=== PATIENT | male | born 1940 | race Caucasian/White ===

== ENCOUNTER → 2019-04-26 11:01 | Outpatient (BNVA) | payer MEDICARE, SELFPAY | PROVIDERS: Family Provider Family Medicine; PCP Family Medicine; Referring Provider Family Medicine; Visit Provider Specialist | DX: M17.12 Unilateral primary osteoarthritis, left knee (principal); M25.462 Effusion, left knee; M25.461 Effusion, right knee | CPT/HCPCS: 73560; 73565 ==

== ENCOUNTER 2019-05-12 10:41 | Outpatient (CLI) | payer MEDICARE, SELFPAY ==
--- NOTE | 2019-05-12 11:00 | MR_ITS ---
WS: [id number] MRI LEFT KNEE HISTORY: pain COMPARISON: 03/20/2010 Anterior cruciate ligament: Abnormal ACL. There are a few fibers of the ACL identified distally. Mid ACL contains increased signal and becomes more horizontal in position. Suspicious for partial tear. J oint space narrowing is also causing impingement upon the ACL. Similar findings were noted on the kenneth or examination. Posterior cruciate ligament: Intact. Medial collateral ligament: Intact. Posterior lateral corner structures: Intact. Medial menisci: Small caliber menisci are extruded from the joint space due to joint space narrowing. Small caliber posterior horn. Suspect partial meniscectomy. Lateral meniscus: Intrasubstance degeneration. No full-thickness tear. Extensor mechanism: Distal quadriceps tendon is normal. Multifocal areas of increased signal in the p atellar tendon. Fluid and soft tissue: Small suprapatellar joint effusion. There is a small amount of soft tissue kristina ma posterior to the femoral condyles. Small Escobar's cyst. Osseous and articular structures: Patellofemoral compartment: Mild narrowing of the patellofemoral joint space. Medial compartment: Severe narrowing of the medial compartment causing extrusion of the menisci. Comp lete loss of cartilage with irregularity along the cortical surface of the joint space. Osteophytes e xtend from the medial femoral condyle and tibial plateau. Small amount of marrow edema along the tibi al plateau surface. This additional marrow edema involving the posterior medial femoral condyle with adjacent soft tissue edema. Lateral compartment: Moderate narrowing of the lateral compartment with loss of cartilage. No marrow edema or fracture. Moderate size osteophytes extend from the lateral femoral condyle and tibial plate au. MR/MR knee LT wo con* [id number] IMPRESSION: 1. 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 2. Small amount of marrow edema with adjacent soft tissue edema involving the posterior medial femoral condyle. Could be related to an acute injury. 3. Small joint effusion and popliteal cyst. 4. Abnormal appearance of the ACL. Partial tear suspected. 5. Small caliber and an abnormal medial menisci. Similar to the prior study m ay be secondary to partial meniscectomy.
== END 2019-05-12 10:42 | disposition home or self-care (01) ==
LOC: RADSHAW 10:42
PROVIDERS: Family Provider Family Medicine; PCP Family Medicine; Visit Provider Specialist
DX: M17.12 Unilateral primary osteoarthritis, left knee (principal); M25.562 Pain in left knee; M25.462 Effusion, left knee; M71.22 Synovial cyst of popliteal space [Baker], left knee
CPT/HCPCS: 73721

== ENCOUNTER → 2019-05-25 13:12 | Outpatient (BNVA) | payer MEDICARE, SELFPAY | PROVIDERS: Family Provider Family Medicine; PCP Family Medicine; Referring Provider Specialist; Visit Provider Psychiatry & Neurology Neurology | DX: G62.89 Other specified polyneuropathies (principal); M25.562 Pain in left knee | CPT/HCPCS: 95885; 95908 ==

== ENCOUNTER → 2019-09-08 08:45 | Outpatient (BNVA) | payer MEDICARE, SELFPAY | PROVIDERS: Family Provider Family Medicine; PCP Family Medicine; Visit Provider Internal Medicine | DX: M60.89 Other myositis, multiple sites (principal); L40.9 Psoriasis, unspecified; M10.9 Gout, unspecified | CPT/HCPCS: 36415; 83516; 99204 ==

== ENCOUNTER 2019-09-08 10:39 | Outpatient (CLI) | payer MEDICARE, SELFPAY ==
--- NOTE | 2019-09-08 10:47 | XRR_ITS ---
PROCEDURE INFORMATION: Exam: XR Bilateral Hips with Pelvis when Performed Exam date and time: 09/08/2019 10:49 AM Age: 78 years old Clinical indication: Bilateral; Patient HX: Bilat hip pain x years; Si pain. HX of skin cancer; Additional info: Si pain, hip pain TECHNIQUE: Imaging protocol: XR bilateral hips with pelvis when performed. Views: 2 views. COMPARISON: No relevant prior studies available. FINDINGS: Bones/joints: Moderate degenerative changes within the right and left hip including joint space narrowing and osteophytosis. No visualized fracture. Trabecular stress markings within the proximal femur are normal and acetabulum appears intact. Visualized portions of the pelvis without fracture Soft tissues: Unremarkable. XR/XR hip BI 3-4V wo/w pel [id number] IMPRESSION: Moderate degenerative changes within the right and left hip including joint space narrowing and osteophytosis. No erosive changes. No osteopenia
--- NOTE | 2019-09-08 10:47 | XRR_ITS ---
PROCEDURE INFORMATION: Exam: XR Right Hand Exam date and time: 09/08/2019 10:49 AM Age: 78 years old Clinical indication: Right; Patient HX: C/O hand pain and swelling x years; Psoriasis, unspecified. HX of skin cancer; Additional info: Hand XR TECHNIQUE: Imaging protocol: XR Right hand. Views: 1 or 2 views. COMPARISON: No relevant prior studies available. FINDINGS: Bones/joints: osseous structures of the hand are without an acute process. Distal radioulnar joint and radiocarpal joints grossly normal. Carpus without fracture. Metacarpals and phalangeal without fracture or dislocation. No erosive changes or periarticular calcifications. mild degenerative changes at the first carpometacarpal joint. Soft tissues: See Bones/joints finding. XR/XR hand RT 2V [id number] IMPRESSION: Mild degenerative changes at the first carpometacarpal joint. No erosive changes.
--- NOTE | 2019-09-08 10:47 | XRR_ITS ---
PROCEDURE INFORMATION: Exam: XR Left Hand Exam date and time: 09/08/2019 10:49 AM Age: 78 years old Clinical indication: Left; Patient HX: C/O bilat hand pain and swelling x years; . Psoriasis, unspecified. HX of skin cancer; Additional info: Hand swelling, psa TECHNIQUE: Imaging protocol: XR Left hand. Views: 1 or 2 views. COMPARISON: MRI Hand w/o LEFT* [id number] 10/18/2015 6:52 AM FINDINGS: Bones/joints: osseous structures of the hand are without an acute process. Distal radioulnar joint and radiocarpal joints grossly normal. Carpus without fracture. Metacarpals and phalangeal without fracture or dislocation. No erosive changes or periarticular calcifications. Mild degenerative changes first carpometacarpal joint. Mild degenerative changes distal interphalangeal joint of the 4th ray Soft tissues: See Bones/joints finding. XR/XR hand LT 2V [id number] IMPRESSION: Mild degenerative changes first carpometacarpal joint. No erosive changes.
== END 2019-09-08 10:40 | disposition home or self-care (01) ==
LOC: RADWPI 10:43
PROVIDERS: Family Provider Family Medicine; PCP Family Medicine; Visit Provider Internal Medicine
DX: M25.551 Pain in right hip (principal); M25.552 Pain in left hip; L40.9 Psoriasis, unspecified; M79.89 Other specified soft tissue disorders
CPT/HCPCS: 73120; 73522; 80053; 81003; 82550; 84100; 84443; 84550; 85025; 85651; 86038; 86140; 86431; 86812; G0103

== ENCOUNTER 2020-03-28 14:24 | Outpatient (RCR) | payer MEDICARE, SELFPAY | END 2020-04-16 23:59 | disposition home or self-care (01) | LOC: SPT 14:24 | PROVIDERS: PCP Family Medicine; Referring Provider Student in an Organized Health Care Education/Training Program; Visit Provider Student in an Organized Health Care Education/Training Program | DX: Z96.652 Presence of left artificial knee joint (principal); Z47.1 Aftercare following joint replacement surgery | CPT/HCPCS: 97110; 97161 ==

== ENCOUNTER 2020-04-17 06:00 | Outpatient (RCR) | payer MEDICARE, SELFPAY | END 2020-05-17 23:59 | disposition home or self-care (01) | LOC: SPT 06:00 | PROVIDERS: PCP Family Medicine; Referring Provider Student in an Organized Health Care Education/Training Program; Visit Provider Student in an Organized Health Care Education/Training Program | DX: Z47.1 Aftercare following joint replacement surgery (principal); Z96.652 Presence of left artificial knee joint | CPT/HCPCS: 97110 ==

== ENCOUNTER → 2020-06-15 10:08 | Outpatient (BNVA) | payer MEDICARE, SELFPAY | PROVIDERS: PCP Family Medicine; Visit Provider Surgery | DX: R13.10 Dysphagia, unspecified (principal); Z20.822 Contact with and (suspected) exposure to COVID-19 | CPT/HCPCS: 87635 ==

== ENCOUNTER 2020-06-20 07:14 | Day surgery (SDC) | payer MEDICARE, SELFPAY ==
[2020-06-19 08:21] VITALS: BMI 21.7
--- NOTE | 2020-06-20 07:45 | ANES.PREANE2 ---
Pre-Anesthetic Assessment Pre-Anesthetic Assessment: Height/Weight: Height 1.83 m Weight 72.575 kg Preop Diagnosis: upper gi symptoms Proposed Procedure: Operation Date: 06/20/20 08:30 Proposed Procedures p EGD Dilation W/ Balloon 70264 R13.10(Not Applicable) - Chan Eason MD Was Beta Jem taken within 24 hours: N/A Was Clonidine taken within 24 hours: N/A Social: Social History: No alcohol and No tobacco Exam: Pre-Anes Outpt Exam: alert, oriented x 3, clear to auscultation bilaterally and regular rate & rhythm Airway: Submandibular: WNL Cervical ROM: WNL MP: 2 Dentition: False CV/HEM: CV/HEM: Anemia GI: Comments: hernia, esophageal scarring Musc/skel: Musc/skel: OA/DJD and Weakness (uses walker) Comments: Gout Anesthetic Plan: ASA status: 3 Anesthesia: MAC Risk of > 500 ml blood loss (7ml/kg in children): No PFSH Anesthesia PFSH: Medical History Gout Peptic ulcer disease Psoriasis Umbilical hernia Surgical History History of esophagogastroduodenoscopy (EGD) Hx of arthroscopy of left knee Social History Smoking and tobacco status: never smoked Alcohol intake: never History of recent travel: No Data Anesthesia Cardiac Studies: No Data to Display
[2020-06-20 07:50] VITALS: BP 189/112; PULSE 72; RESP 16; TEMP 36.9; O2SAT 95
[2020-06-20] MEDS: sodium chloride 0.9% 1,000 ML 30 ML IV (08:04)
[2020-06-20 08:06] VITALS: BP 174/94
--- NOTE | 2020-06-20 08:24 | W.PM.OPSUD ---
Surgery/Procedure H&P Update DATE OF PROCEDURE: June 20, 2020 DATE H&P PERFORMED: 06/02/20 H&P UPDATE INFORMATION: I have reviewed H&P completed within last 30 days, I have examined patient prior to procedure and No changes to prior documentation PREOP DIAGNOSIS: upper gi symptoms PLANNED PROCEDURE: Operation Date: 06/20/20 08:30 Proposed Procedures p EGD Dilation W/ Balloon 08777 R13.10(Not Applicable) - Chan Eason MD
[2020-06-20 08:42] VITALS: BP 140/81; PULSE 62; RESP 18; TEMP 36.5; O2SAT 97
[2020-06-20 08:57] VITALS: BP 134/75; PULSE 66; RESP 18; TEMP 36.7; O2SAT 97
--- NOTE | 2020-06-20 12:28 | ANE.PACU2 ---
Inpatient post-anesthesia follow up: Airway intact: Yes Vital signs: Temperature 98.0 F Pulse Rate 66 Respiratory Rate 18 Blood Pressure 134/75 Pulse Oximetry 97 Oxygen Delivery Me thod Room Air Oxygen Flow Rate 3 Fraction of Inspir ed Oxygen Hydration adequate: Yes Nausea and vomiting: No Pain level: 1 Mental status: Baseline
== END 2020-06-20 09:20 | disposition home or self-care (01) ==
PROVIDERS: PCP Family Medicine; Visit Provider Surgery
DX: R13.10 Dysphagia, unspecified (principal); K25.9 Gastric ulcer, unspecified as acute or chronic, without hemorrhage or perforation; Z87.11 Personal history of peptic ulcer disease
CPT/HCPCS: 43239; 88305; 96360; J2704; J7030

== ENCOUNTER 2020-09-15 10:37 | Outpatient (CLI) | payer MEDICARE, SELFPAY ==
--- NOTE | 2020-09-15 10:48 | XR_ITS ---
WS: [id number] Exam: XR knee LT 3V* [id number] Date/Time of Exam: 09/15/2020 10:49 AM Reason For Exam: KNEE JOINT PAIN, LEFT A total knee prosthesis is in place in satisfactory position. No evidence of fracture or loosening. N o joint effusion. XR/XR knee LT 3V* [id number] IMPRESSION: 1. Total knee replacement in satisfactory position. No complications.
--- NOTE | 2020-09-15 10:48 | XR_ITS ---
WS: [id number] Exam: XR ankle LT min 3V* [id number] Date/Time of Exam: 09/15/2020 10:49 AM Reason For Exam: ANKLE PAIN, LEFT No acute fracture or dislocation. The ankle mortise is intact. Soft tissues are unremarkable. XR/XR ankle LT min 3V* [id number] IMPRESSION: 1. No fracture or dislocation. Minimal degenerative change.
== END 2020-09-15 10:38 | disposition home or self-care (01) ==
PROVIDERS: PCP Family Medicine; Visit Provider Clinical Nurse Specialist Adult Health
DX: M25.562 Pain in left knee (principal); M25.572 Pain in left ankle and joints of left foot; Z96.652 Presence of left artificial knee joint
CPT/HCPCS: 73562; 73610

== ENCOUNTER 2021-02-05 07:50 | Outpatient (CLI) | payer MEDICARE, SELFPAY ==
--- NOTE | 2021-02-05 | CT_ITS ---
WS: [id number] Exam: CT neck w con* [id number] Date/Time of Exam: 02/05/2021 7:56 AM Reason For Exam: NECK MASS DLP: 1073.[address] scans at [facility] use at least one of these dose optimization techniques: automated e xposure control; mA and/or kV adjustment per patient size (includes targeted exams where dose is matc hed to clinical indication); or iterative reconstruction. CT scan of the neck performed in the axial plane with sagittal and coronal reformatted images. Intrav enous contrast was administered. There was no indication of neck mass or significant cervical lymphadenopathy. The parotid glands and submandibular glands are symmetrical side to side. The airway is patent. No masses in the region of t he tongue base. There appears to be significant stenosis at the takeoff of the right extracranial ICA which may be as high as 70-80%. There is also probable mild stenosis at the takeoff of the left extr acranial ICA visually estimated at 30-40%. The bilateral common carotid arteries are patent. The vert ebral arteries are patent as visualized. The visualized upper lung zones are clear. No superior media stinal lymphadenopathy. Unremarkable thyroid tissue. The great vessels appear to be patent at the lev el of the aortic arch. Moderate degenerative changes in the cervical spine. Images of the skull base and posterior fossa are unremarkable. Recommendations: Bilateral carotid Doppler evaluation recommended for further workup unless this has been recently performed. CT/CT neck w con* [id number] IMPRESSION: 1. No sign of neck mass or significant cervical lymphadenopathy. 2. Probable significant stenosis involving the takeoff of the extracranial righ t ICA which may be as high as 70-80%. Stenosis secondary to calcified and soft atherosclerotic plaquing. 3. Mild stenosis at the takeoff of the extracranial right ICA visually estimate d at 30-40%.
[2021-02-05 08:21] LABS: Blood Urea Nitrogen 17 mg/dL (8-23)
[2021-02-05] MEDS: iohexol 300 mg/mL 100 mL Btl IV (11:40)
== END 2021-02-05 07:51 | disposition home or self-care (01) ==
PROVIDERS: PCP Family Medicine; Visit Provider Family Medicine
DX: R22.1 Localized swelling, mass and lump, neck (principal); I70.8 Atherosclerosis of other arteries
CPT/HCPCS: 70491; 82565; 84520; Q9967

== ENCOUNTER 2021-05-09 13:11 | Outpatient (CLI) | payer MEDICARE, SELFPAY ==
--- NOTE | 2021-05-09 13:23 | XRR_ITS ---
PROCEDURE INFORMATION: Exam: XR Chest Exam date and time: 05/09/2021 1:28 PM Age: 80 years old Clinical indication: Other: Weakness/palpitations/acute bronchitis TECHNIQUE: Imaging protocol: XR of the chest. Views: 2 views. COMPARISON: CR Chest 1 [place] [id number] 09/22/2018 8:27 PM FINDINGS: Lungs: The lungs are somewhat hyperinflated with increased interstitial markings, likely representing COPD. No evidence of focal consolidation to suggest pneumonia. Pleural spaces: Unremarkable. No pleural effusion. No pneumothorax. Heart/Mediastinum: Stable cardiomediastinal silhouette. Bones/joints: Degenerative changes of the spine seen. XR/XR chest 2V* [id number] IMPRESSION: No evidence of focal consolidation. COPD changes.
== END 2021-05-09 13:12 | disposition home or self-care (01) ==
LOC: RAD 13:13
PROVIDERS: PCP Family Medicine; Visit Provider Family Medicine
DX: R53.1 Weakness (principal); R00.2 Palpitations; J20.9 Acute bronchitis, unspecified
CPT/HCPCS: 71046

== ENCOUNTER 2021-05-24 14:06 | Outpatient (CLI) | payer MEDICARE, SELFPAY ==
--- NOTE | 2021-05-24 14:20 | USCV_ITS ---
Andre Nichole Age: 80 Gender: M : 1940 Exam Date: 05/24/2021 14:37 Ordering Phys: KIMBERLI CA Technologist: Brant Vergara [place] [facility] [place]: cca disease Risk Factors: Previous Vascular Surgery: Right Brachial BP: / Left Brachial BP: / Right Left Velocity (cm/s) Spectral Plaque Velocity (cm/s) Spectral Plaque Syst/Diast Broadening Syst/Diast Broadening 64.40/ 18.20 Prox CCA 55.00 / 12.10 60.70/ 17.00 Mid CCA 75.00 / 12.10 64.40/ 14.60 Hetro Distal CCA 63.70 / 16.10 Hetro 210.80/50.20 Hetro Prox ICA 135.80/ 18.70 Hetro 233.40/60.20 Prateek Mid ICA 98.40 / 20.40 78.70/ 14.40 Distal ICA 70.60 / 16.00 87.40 ECA 63.70 3.63 ICA/CCA 1.81 Antegrade Vertebral Antegrade 31.30/ 6.80 cm/s 33.60/ 10.00 cm/s Tri Subclavian Tri 47.40 76.20 FINDINGS Comparison: none available. Diffuse bilateral scattered calcified plaque and intimal thickening throughout the common carotid arteries and extending through the bifurcation. Antegrade vertebral arteries. CONCLUSIONS Right ICA stenosis 50-69%. Left ICA stenosis < 50%. Dr. Malaika Sheth DO (Electronically Signed) Final Date: 24 May 2021 15:33 S
== END 2021-05-24 14:07 | disposition home or self-care (01) ==
PROVIDERS: PCP Family Medicine; Visit Provider Nurse Practitioner
DX: I65.23 Occlusion and stenosis of bilateral carotid arteries (principal)
CPT/HCPCS: 93880

== ENCOUNTER → 2021-11-19 14:12 | Outpatient (BNVA) | payer MEDICARE, SELFPAY | PROVIDERS: PCP Family Medicine; Visit Provider Family Medicine | DX: R63.4 Abnormal weight loss (principal); R19.7 Diarrhea, unspecified; R35.0 Frequency of micturition; M10.9 Gout, unspecified | CPT/HCPCS: 80053; 83880; 84153; 85025; 85651; 86140 ==

== ENCOUNTER 2021-12-13 14:44 | Outpatient (CLI) | payer MEDICARE, SELFPAY ==
[2021-12-13] MEDS: iohexol 350 mg/mL 100 mL Btl PO (15:02)
[2021-12-13] MEDS: iohexol 350 mg/mL 100 mL Btl IV (15:02)
--- NOTE | 2021-12-13 16:30 | CT_ITS ---
WS: [id number] CT CHEST, ABDOMEN AND PELVIS WITH CONTRAST HISTORY: weight loss, diarrhea, cough TECHNIQUE: Contiguous 5 mm axial imaging performed through the chest, abdomen and pelvis with IV cont rast, oral contrast has been provided. Coronal and sagittal reformats chest. Coronal and sagittal ref ormats through the abdomen and pelvis. All CT scans at [facility] use at least one of these d ose optimization techniques: automated exposure control; mA and/or kV adjustment per patient size (in cludes targeted exams where dose is matched to clinical indication); or iterative reconstruction. CONTRAST: Omnipaque 350; 95 mL IV. DLP: 1375.79 mGy.cm COMPARISON: None available. Chest CT: No mass or nodule. Subsegmental atelectasis RIGHT lower lobe. No pericardial or pleural eff usions. Mild enlargement of the RIGHT heart. Moderate atherosclerosis aorta. Normal sized pulmonary a rteries. No mediastinal or hilar lymph nodes are identified. Abdomen CT: Mild anterior rotation RIGHT lobe of the liver. Large amount of the colon is anterior to the liver. No hepatic bile duct dilatation. The gallbladder is normally distended. There is an intral uminal soft tissue mass measuring 2.7 x 2.8 cm. No bile duct dilatation. Normal size spleen with gran ulomata. Atrophic pancreas. No adrenal mass. Mild atrophy of each kidney. Nonobstructing calcificatio ns and bilateral renal cysts. Mild atherosclerosis aorta with no aneurysm. Abdominal wall hernia with protruding fat. There are several small defects along the anterior abdomin al wall just to the LEFT of midline. Herniating fat. Both of these defects with stranding in the subc utaneous soft tissue consistent with fat necrosis. There is marked distention of the colon with air and fecal material. Stomach is normally distended. N o small bowel obstruction. No free air. No free fluid. Pelvic CT: Well-distended urinary bladder. Prostate gland is enlarged and heterogeneous. There is per irectal soft tissue stranding with rectal wall thickening up to 7 mm. No adenopathy. There is also soft tissue thickening along the posterior pelvis which may be healed decubitus ulcers. These are incompletely included in this examination. Degenerative changes in the thoracic and lumbar spine. No osteoblastic or osteolytic bone disease. CT/CT chest abd pel w con* IMPRESSION: 1. Abnormal gallbladder. There is a soft tissue mass within the gallbladder me asuring 2.7 x 2.8 cm. Not a typical appearance for a calcified stone. Gallbladd er ultrasound may provide additional information. Surgical removal may be neces keyno. 2. Ventral abdominal wall hernias containing fat with fat necrosis. 3. Mild circumferential thickening of the rectum. Consider proctitis suggest s igmoidoscopy. 4. No pulmonary mass or pneumonia. Partial atelectasis RIGHT lower lobe. 5. Enlarged heterogeneous prostate gland.
== END 2021-12-13 14:45 | disposition home or self-care (01) ==
LOC: RAD 14:45
PROVIDERS: PCP Family Medicine; Visit Provider Family Medicine
DX: R63.4 Abnormal weight loss (principal); R19.7 Diarrhea, unspecified; R05.9 Cough, unspecified; K82.9 Disease of gallbladder, unspecified; K43.9 Ventral hernia without obstruction or gangrene; K65.4 Sclerosing mesenteritis; N40.0 Benign prostatic hyperplasia without lower urinary tract symptoms
CPT/HCPCS: 71260; 74177

== ENCOUNTER → 2022-01-08 13:04 | Outpatient (BNVA) | payer MEDICARE, SELFPAY | PROVIDERS: PCP Family Medicine; Visit Provider Surgery | DX: R19.7 Diarrhea, unspecified (principal); K82.8 Other specified diseases of gallbladder; R13.10 Dysphagia, unspecified; K62.9 Disease of anus and rectum, unspecified; K43.9 Ventral hernia without obstruction or gangrene | CPT/HCPCS: 99214 ==

== ENCOUNTER 2022-02-04 06:39 | Day surgery (SDC) | payer MEDICARE, SELFPAY ==
[2022-02-04] VITALS (13 sets, daily range): BP systolic 151–196; BP diastolic 86–119; PULSE 73–97; RESP 15–83; TEMP 36.2–37.1; O2SAT 95–100
--- NOTE | 2022-02-04 07:03 | W.PM.OPSUD ---
Surgery/Procedure H&P Update DATE OF PROCEDURE: February 04, 2022 DATE H&P PERFORMED: 01/08/22 PREOP DIAGNOSIS: Gallbladder mass PLANNED PROCEDURE: Operation Date: 02/04/22 08:20 Proposed Procedures p Laparoscopic Cholecystectomy 13560,K82.8(Not Applicable) - Bruno White DO
[2022-02-04] MEDS: sodium chloride 0.9% 1,000 ML 30 ML IV (07:15)
--- NOTE | 2022-02-04 07:25 | ECG_ITS ---
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
--- NOTE | 2022-02-04 07:52 | P.ANESASSM_ITS ---
Pre-Anesthetic Assessment Height/Weight: Height 1.83 m Weight 67.132 kg Temp Pulse Resp BP Pulse Ox O2 Del Method 98.7 F 88 18 159/86 98 02/04/22 06:51 02/04/22 06:51 02/04/22 06:51 02/04/22 06:51 02/04/22 06:51 02/04/22 07:05 Preop Diagnosis: Gallbladder mass Operation Date: 02/04/22 08:20 Proposed Procedures p Laparoscopic Cholecystectomy 90972,K82.8(Not Applicable) - Bruno White DO Familial anesthetic complications: none Was Beta Jem taken within 24 hours: N/A Was Clonidine taken within 24 hours: N/A Last intake: Intake Last Liquid Date 02/03/22 Last Liquid Time 19:00 Last Solid Date 02/03/22 Last Solid Time 19:00 Social No alcohol and No tobacco Exam alert, oriented x 3, clear to auscultation bilaterally and regular rate & rhythm Airway Submandibular: within normal limits Cervical ROM: within normal limits Mallampati: Class II Dentition: false CV/HEM Hypertension GI Gastroesophageal Reflux Disease [facility] [place] Osteoarthritis/DJD Anesthetic Plan ASA status: 2 Anesthesia: General Medications/Allergies Home Medications Medication Instructions Recorded Confirmed Last Taken Type amlodipine 5 mg tablet 5 mg PO DAILY 12/20/21 02/01/22 02/03/22 History allopurinol 100 mg tablet 100 mg PO BID #60 tabs 01/15/22 02/01/22 02/03/22 Rx Allergies Allergy/AdvReac Type Severity Reaction Status Date / Time No Known Allergies Allergy Verified 02/01/22 14:16 Current Medications Generic Name Dose Route Start Last Admin Trade Name Robertq PRN Reason Stop Dose Admin Sodium Chloride 1,000 mls @ 30 mls/hr 02/04/22 07:00 02/04/22 07:15 Sodium Chloride 0.9% IV 02/05/22 06:59 30 mls/hr .Q24H YINKA Administration PFSH Anesthesia Medical History (Updated 01/08/22 @ 14:30 by Bruno White DO) Gout Peptic ulcer disease Psoriasis Umbilical hernia Ventral hernia Surgical History History of esophagogastroduodenoscopy (EGD) Hx of arthroscopy of left knee Social History Smoking and tobacco status: never smoked Alcohol intake: never History of recent travel: No Data Anesthesia Cardiac Studies: Holter Monitor 05/24/21
[2022-02-04] MEDS: ceFAZolin 2,000 MG in sodium chloride 0.9% (plus) 50 ML 100 MG IV (08:09)
--- NOTE | 2022-02-04 09:08 | P.OP_ITS ---
Operative Report Date of procedure: February 04, 2022 Pre-op diagnosis: Preop Diagnosis Gallbladder mass Post-op diagnosis: same Procedure done: Laparoscopic cholecystectomy Specimens removed/disposition: Gallbladder Surgeon: Dr. Bruno White DO Anesthesia: General Estimated blood loss (mL): 5 Complications: None apparent Brief History: This is a very pleasant 81-year-old gentleman who was found to have a mass in his gallbladder. Laparoscopic cholecystectomy was indicated. Risks and benefits were explained and documented. Procedure: Patient was wheeled into the operative room and placed on the OR table in a supine position. Abdomen was inspected prepped and draped in usual sterile fashion. Time-out was performed and all present were in agreement. A 15 blade scalp was used to make a stab incision in the left upper quadrant and intra- abdominal insufflation was achieved using a Veress needle. After localizing the tissue incisions were made and a 5 millimeter trocar was placed inferior to the umbilicus as well as 2 in the right upper quadrant. A 12 millimeter trocar was placed in the epigastrium. Gallbladder was grasped and elevated. The triangle of Calot was carefully dissected using blunt dissection and electrocautery until the triangle of Calot clearly identified. The cystic duct was clipped proximally and double clipped distally. The duct was then ligated proximally. The cystic artery was doubly clipped and ligated. The gallbladder was then removed from the liver bed using electrocautery. No bile was spilled. The gallbladder was removed from the abdomen using an Endo-Catch bag through the epigastric incision. The liver bed was inspected and no bleeding was seen. The abdomen was irrigated and suctioned. All ports removed. Skin was washed and dried. Incisions were closed with 3-0 and 4-O Vicryl in a subcuticular interrupted fashion. Skin glue was applied. Patient tolerated the procedure well.
[2022-02-04] MEDS: fentaNYL 50 mcg/mL INJ 2mL IVP ×2 (09:30→09:42)
--- NOTE | 2022-02-04 09:38 | SUR.PHASEI ---
0919 PT TO PACU 5 PT AWAKES TO VOICE, BUT DOES NOT SPEAK, MONITOR SR WITH NO ECTOPY NOTED SATS 100% ON 8L O2 MASK, WITH GOOD RESP EFFORT NOTED, ABDOMEN FLAT SOFT WITH 4 SITES WITH SKIN GLUE, SCDS ON BILAT IV TO RT WRIST #20 WITH 900ML NS UP AT KVO RATE PER GRAVITY, ID BRACLET TO LT WRIST PT ID'D WITH 2 IDENTIFERS.
--- NOTE | 2022-02-04 09:49 | SUR.PHASEI ---
0942 PT BP HAS BEEN ELEVATED PT C/O OF ABDOMENAL PAIN SEE PAIN MEDS GIVEN FOR PAIN AND PT RESTING QUIETLY NOW AN BP IS NOW MORE NORMAL FOR PT.
[2022-02-04] MEDS: HYDROcodone-acetaminophen 7.5-325 mg Tablet 1 TAB PO (10:24)
[2022-02-04] MEDS: ondansetron 2 mg/ML SDV 2 mL 4 MG IVP ×2 (10:31→11:15)
--- NOTE | 2022-02-04 15:49 | ANE.PACU2 ---
Inpatient post-anesthesia follow up: Airway intact: Yes Vital signs: Temperature 97.4 F Pulse Rate 78 Respiratory Rate 16 Blood Pressure 165/92 Pulse Oximetry 96 Oxygen Delivery Me thod Room Air Oxygen Flow Rate 8 Fraction of Inspir ed Oxygen Hydration adequate: Yes Nausea and vomiting: Yes Pain level: 3 Mental status: Baseline Additional Comments: Some urinary retention.
== END 2022-02-04 12:25 | disposition home or self-care (01) ==
PROVIDERS: PCP Family Medicine; Visit Provider Surgery
PROC: 0FT44ZZ Resection of Gallbladder, Percutaneous Endoscopic Approach (ICD-10-PCS; CPT 47562; principal; 2022-02-04 08:10)
DX: K80.10 Calculus of gallbladder with chronic cholecystitis without obstruction (principal); I10 Essential (primary) hypertension; K21.9 Gastro-esophageal reflux disease without esophagitis; M19.90 Unspecified osteoarthritis, unspecified site; Z87.11 Personal history of peptic ulcer disease
CPT/HCPCS: 47562; 88304; 93005; J0690; J1100; J2405; J2704; J3010; J3490; J7030

== ENCOUNTER → 2022-02-19 09:35 | Outpatient (BNVA) | payer MEDICARE, SELFPAY | PROVIDERS: PCP Family Medicine; Visit Provider Surgery | DX: Z98.890 Other specified postprocedural states (principal); K43.9 Ventral hernia without obstruction or gangrene; Z90.49 Acquired absence of other specified parts of digestive tract | CPT/HCPCS: 99024; 99213 ==

== ENCOUNTER 2022-02-28 06:23 | Day surgery (SDC) | payer MEDICARE, SELFPAY ==
[2022-02-26 08:46] VITALS: BMI 18.3
--- NOTE | 2022-02-28 06:38 | PM.HP ---
Providers/Chief Complaint Primary Care Provider: Xavier Patel MD Chief Complaint: R13.10, R19.7, K62.9 History of Present Illness Andre Nichole is a 81 year old male here for EGD with possible balloon dilation and colonoscopy Medications/Allergies Home Medications Medication Instructions Recorded Confirmed Last Taken Type amlodipine 5 mg tablet 5 mg PO DAILY 12/20/21 02/26/22 02/03/22 History allopurinol 100 mg tablet 100 mg PO BID #60 tabs 01/15/22 02/26/22 02/03/22 Rx hydrocodone 7.5 mg-acetaminophen 1 tab PO Q6H PRN pain #20 tabs 02/04/22 02/26/22 Unknown Rx 325 mg tablet Allergies Allergy/AdvReac Type Severity Reaction Status Date / Time No Known Allergies Allergy Verified 02/19/22 09:46 PFSH Acute PFSH: Medical History (Updated 02/28/22 @ 06:39 by Bruno White DO) Gout Peptic ulcer disease Psoriasis Umbilical hernia Ventral hernia Surgical History (Updated 02/19/22 @ 10:08 by Bruno White DO) History of cholecystectomy History of esophagogastroduodenoscopy (EGD) Hx of arthroscopy of left knee Social History Smoking and tobacco status: never smoked Alcohol intake: never History of recent travel: No Vitals/I&O/Wt Weight last 48 hrs Weight 135 lb A&P Assessment and plan (1) Dysphagia: (2) Colon cancer screening: Plan EGD with possible balloon dilation Colonoscopy Attestations Medical Necessity Statement*: home Coding Level of Care Code Acute Java Developer Consultant for Chg Fwd Diagnoses Dysphagia R13.10 Colon cancer screening Z12.11
[2022-02-28 06:45] VITALS: BP 149/86; PULSE 93; RESP 18; TEMP 36.7; O2SAT 98
[2022-02-28] MEDS: sodium chloride 0.9% 1,000 ML 30 ML IV (06:55)
--- NOTE | 2022-02-28 07:02 | ANES.PREANE2 ---
Pre-Anesthetic Assessment Height/Weight: Height 1.83 m Weight 61.235 kg Temp Pulse Resp BP Pulse Ox 98.1 F 93 18 149/86 98 02/28/22 06:45 02/28/22 06:45 02/28/22 06:45 02/28/22 06:45 02/28/22 06:45 Preop Diagnosis: Gallbladder mass Operation Date: 02/28/22 07:30 Proposed Procedures p 0[address]58 E[place], [address] colon R13.10,R19.7,K62.9(Not Applicable) - DO jayy Isabel Colonoscopy(Not Applicable) - Bruno White DO Familial anesthetic complications: None Was Beta Jem taken within 24 hours: N/A Was Clonidine taken within 24 hours: N/A Last intake: Intake Last Liquid Date 02/27/22 Last Liquid Time 22:00 Last Solid Date 02/26/22 Last Solid Time 19:00 Social No alcohol and No tobacco Exam alert, oriented x 3, clear to auscultation bilaterally and regular rate & rhythm Airway Submandibular: within normal limits Cervical ROM: within normal limits Mallampati: Class II Dentition: false History/ROS No significant history except as noted Pulmonary None reported CV/HEM Hypertension None reported Hepatic None reported GI Gastroesophageal Reflux Disease (Diet related, well controlled) Metabolic None reported Musc/skel None reported Neuropsych None reported Anesthetic Plan ASA status: 3 Anesthesia: Anesthesia Evaluation and MAC Risk of > 500 ml blood loss (7ml/kg in children): No Medications/Allergies Home Medications Medication Instructions Recorded Confirmed Last Taken Type amlodipine 5 mg tablet 5 mg PO DAILY 12/20/21 02/28/22 02/27/22 History allopurinol 100 mg tablet 100 mg PO BID #60 tabs 01/15/22 02/28/22 02/27/22 Rx hydrocodone 7.5 mg-acetaminophen 1 tab PO Q6H PRN pain #20 tabs 02/04/22 02/26/22 Unknown Rx 325 mg tablet Allergies Allergy/AdvReac Type Severity Reaction Status Date / Time No Known Allergies Allergy Verified 02/19/22 09:46 Current Medications Generic Name Dose Route Start Last Admin Trade Name Freq PRN Reason Stop Dose Admin Sodium Chloride 1,000 mls @ 30 mls/hr 02/28/22 06:30 02/28/22 06:55 Sodium Chloride 0.9% IV 03/01/22 06:29 30 mls/hr .Q24H YINKA Administration PFSH Anesthesia Medical History (Updated 02/28/22 @ 06:39 by Bruno White DO) Gout Peptic ulcer disease Psoriasis Umbilical hernia Ventral hernia Surgical History (Updated 02/19/22 @ 10:08 by Bruno White DO) History of cholecystectomy History of esophagogastroduodenoscopy (EGD) Hx of arthroscopy of left knee Social History Smoking and tobacco status: never smoked Alcohol intake: never History of recent travel: No Data Anesthesia Cardiac Studies: Holter Monitor 05/24/21
--- NOTE | 2022-02-28 07:50 | PC.NURSE ---
PT IN ROOM FOR EGD/COLONOSCOPY EGD COMPLETED PT WAS POSITIONED FOR COLONOSCOPY WHEN ASSISTING NURSE NOTICED A PRESSURE INJURY ON THE PT SACRAL AREA THIS APPEARS TO BE CHRONIC IN NATURE
[2022-02-28 08:06] VITALS: BP 122/76; PULSE 69; RESP 12; TEMP 36.1; O2SAT 97
--- NOTE | 2022-02-28 08:10 | ANE.PACU2 ---
Inpatient post-anesthesia follow up: Airway intact: Yes Vital signs: Temperature 97F Pulse Rate 69 Respiratory Rate 14 Blood Pressure 127/79 Pulse Oximetry 100 Oxygen Delivery Me thod RA Oxygen Flow Rate Fraction of Inspir ed Oxygen Hydration adequate: Yes Nausea and vomiting: No Pain level: 0 Mental status: Baseline
[2022-02-28 08:22] VITALS: BP 141/94; PULSE 72; RESP 12; O2SAT 95
== END 2022-02-28 08:40 | disposition home or self-care (01) ==
PROVIDERS: PCP Family Medicine; Visit Provider Surgery
PROC: 0DJD8ZZ Inspection of Lower Intestinal Tract, Via Natural or Artificial Opening Endoscopic (ICD-10-PCS; CPT 45378; 2022-02-28 07:30)
DX: Z12.11 Encounter for screening for malignant neoplasm of colon (principal); K29.50 Unspecified chronic gastritis without bleeding; B96.81 Helicobacter pylori [H. pylori] as the cause of diseases classified elsewhere; R13.10 Dysphagia, unspecified; Z87.11 Personal history of peptic ulcer disease; K57.30 Diverticulosis of large intestine without perforation or abscess without bleeding; K22.2 Esophageal obstruction; I10 Essential (primary) hypertension; K21.9 Gastro-esophageal reflux disease without esophagitis
CPT/HCPCS: 43239; 43249; 45380; 82274; 83630; 87493; 87506; 88305; 88342; J2704; J7030

== ENCOUNTER → 2022-03-13 11:06 | Outpatient (BNVA) | payer MEDICARE, SELFPAY | PROVIDERS: PCP Family Medicine; Visit Provider Surgery | DX: Z09 Encounter for follow-up examination after completed treatment for conditions other than malignant neoplasm (principal); R13.10 Dysphagia, unspecified; K43.9 Ventral hernia without obstruction or gangrene | CPT/HCPCS: 99212 ==

== ENCOUNTER 2022-03-25 07:46 | Day surgery (SDC) | payer MEDICARE, SELFPAY ==
[2022-03-21 14:05] VITALS: BMI 19.0
[2022-03-25] VITALS (16 sets, daily range): BP systolic 112–180; BP diastolic 61–113; PULSE 61–89; RESP 16–22; TEMP 36.2–36.4; O2SAT 93–99
[2022-03-25] MEDS: sodium chloride 0.9% 1,000 ML 30 ML IV (08:34)
--- NOTE | 2022-03-25 08:47 | ANES.PREANE2 ---
Pre-Anesthetic Assessment Height/Weight: Height 1.83 m Weight 63.503 kg Temp Pulse Resp BP Pulse Ox O2 Del Method 97.4 F L 76 18 165/96 97 03/25/22 08:00 03/25/22 08:00 03/25/22 08:00 03/25/22 08:42 03/25/22 08:00 03/25/22 08:08 Preop Diagnosis: Ventral hernia Operation Date: 03/25/22 09:30 Proposed Procedures p lap repair ventral hernia w mesh 95485,K43.9(Not Applicable) - Bruno White DO Familial anesthetic complications: none Was Beta Jem taken within 24 hours: N/A Was Clonidine taken within 24 hours: N/A Last intake: Intake Last Liquid Date 03/24/22 Last Liquid Time 18:30 Last Solid Date 03/24/22 Last Solid Time 18:30 Social No alcohol and No tobacco Exam alert, oriented x 3, clear to auscultation bilaterally and regular rate & rhythm Airway Mallampati: Class II Dentition: false GI Gastroesophageal Reflux Disease and Peptic Ulcer Disease Anesthetic Plan ASA status: 2 Anesthesia: General Risk of > 500 ml blood loss (7ml/kg in children): No Medications/Allergies Home Medications Medication Instructions Recorded Confirmed Last Taken Type amlodipine 5 mg tablet 5 mg PO DAILY 12/20/21 03/25/22 03/25/22 06:30 History allopurinol 100 mg tablet 100 mg PO BID #60 tabs 01/15/22 03/25/22 03/25/22 06:30 Rx pantoprazole 40 mg tablet,delayed 40 mg PO BID 6 weeks #84 tabs 02/28/22 03/25/22 03/25/22 06:30 Rx release (Protonix) Allergies Allergy/AdvReac Type Severity Reaction Status Date / Time No Known Allergies Allergy Verified 03/25/22 07:56 Current Medications Generic Name Dose Route Start Last Admin Trade Name Freq PRN Reason Stop Dose Admin Sodium Chloride 1,000 mls @ 30 mls/hr 03/25/22 08:00 03/25/22 08:34 Sodium Chloride 0.9% IV 03/26/22 07:59 30 mls/hr .Q24H YINKA Administration PFSH Anesthesia Medical History Gout Peptic ulcer disease Psoriasis Umbilical hernia Ventral hernia Surgical History History of cholecystectomy History of esophagogastroduodenoscopy (EGD) Hx of arthroscopy of left knee Social History Smoking and tobacco status: never smoked Alcohol intake: never History of recent travel: No Data Anesthesia Cardiac Studies: Holter Monitor 05/24/21
--- NOTE | 2022-03-25 10:11 | PM.HP ---
Providers/Chief Complaint Primary Care Provider: Xavier Patel MD Chief Complaint: K43.9 History of Present Illness Andre Nichole is a 81 year old male here for laparoscopic repair of ventral hernia with mesh Medications/Allergies Home Medications Medication Instructions Recorded Confirmed Last Taken Type amlodipine 5 mg tablet 5 mg PO DAILY 12/20/21 03/25/22 03/25/22 06:30 History allopurinol 100 mg tablet 100 mg PO BID #60 tabs 01/15/22 03/25/22 03/25/22 06:30 Rx pantoprazole 40 mg tablet,delayed 40 mg PO BID 6 weeks #84 tabs 02/28/22 03/25/22 03/25/22 06:30 Rx release (Protonix) Allergies Allergy/AdvReac Type Severity Reaction Status Date / Time No Known Allergies Allergy Verified 03/25/22 07:56 PFSH Acute PFSH: Medical History Gout Peptic ulcer disease Psoriasis Umbilical hernia Ventral hernia Surgical History History of cholecystectomy History of esophagogastroduodenoscopy (EGD) Hx of arthroscopy of left knee Social History Smoking and tobacco status: never smoked Alcohol intake: never History of recent travel: No Vitals/I&O/Wt Last Vital Signs Temp 97.4 F L 03/25/22 08:00 Pulse 76 03/25/22 08:00 Resp 18 03/25/22 08:00 BP 165/96 03/25/22 08:42 Pulse Ox 97 03/25/22 08:00 O2 Del Method 03/25/22 08:08 A&P Assessment and plan (1) Ventral hernia: Plan Laparoscopic ventral hernia repair with mesh The risks and benefits were previously explained and understood Attestations Medical Necessity Statement*: Home Coding Level of Care Code Acute Code for Chg Fwd Diagnoses Ventral hernia K43.9
[2022-03-25] MEDS: ceFAZolin 2,000 MG in sodium chloride 0.9% (plus) 50 ML 100 MG IV (10:22)
--- NOTE | 2022-03-25 11:30 | PM.OP ---
Operative Report Date of procedure: March 25, 2022 Pre-op diagnosis: Preop Diagnosis Ventral hernia Post-op diagnosis: other (Ventral and umbilical hernia) Procedure done: Laparoscopic repairs of ventral and umbilical hernias with mesh Implants: 6 inch Ventralight round mesh Specimens removed/disposition: Hernia sac and contents Surgeon: Dr. Bruno White DO Anesthesia: General Estimated blood loss (mL): 5 Brief History: Plan umbilical hernia. LaparoscopicThis is a very pleasant 81-year-old gentleman repair with mesh was indicated. The risks and benefits were explained and documented. Procedure: Patient was wheeled into the operative room and placed on the OR table in a supine position. Abdomen was inspected prepped and draped in usual sterile fashion. Time-out was performed and all present were in agreement. A 15 blade scalp was used to make a 5 millimeter incision left upper quadrant. A Veress needle was placed into the incision and intra-abdominal insufflation was brought to 15 millimeters of mercury. A 12 millimeter trocar was placed into the left lower quadrant. There were 2 hernias identified. There was an incarcerated ventral hernia approximately 3 cm cephalad to a 1 cm umbilical hernia. The ventral hernia was also 1 cm and contained significant fat and fibrous tissue. The energy but device was then used to cut out the hernia sacs. A 6 inch ventral light mesh was placed into the abdomen and brought up through the anterior abdominal wall in between both hernias using an the Lewis-Eron. The mesh was then tacked in place in a double crown fashion. The skeleton of the mesh was removed via the left lower quadrant. The hernia sac was then removed from the abdomen via the left lower quadrant. The left lower quadrant port site was closed with an 0 Vicryl suture in a Lewis-Eron in a [id number] fashion. Incisions were closed with 4 O Vicryl in a subcuticular interrupted fashion. Skin glue was applied. Patient tolerated the procedure well.
[2022-03-25] MEDS: fentaNYL 50 mcg/mL INJ 2mL IVP (12:08)
[2022-03-25] MEDS: HYDROcodone-acetaminophen 7.5-325 mg Tablet 1 TAB PO (12:53)
--- NOTE | 2022-03-25 13:16 | ANE.PACU2 ---
Inpatient post-anesthesia follow up: Airway intact: Yes Vital signs: Temperature 97.4 F Pulse Rate 75 Respiratory Rate 18 Blood Pressure 180/83 Pulse Oximetry 95 Oxygen Delivery Me thod Room Air Oxygen Flow Rate 6 Fraction of Inspir ed Oxygen Hydration adequate: Yes Nausea and vomiting: No Pain level: 1 Mental status: Baseline
== END 2022-03-25 14:47 | disposition home or self-care (01) ==
PROVIDERS: PCP Family Medicine; Visit Provider Surgery
PROC: 0WQF4ZZ Repair Abdominal Wall, Percutaneous Endoscopic Approach (ICD-10-PCS; CPT 49594; principal; 2022-03-25 09:20)
DX: K43.6 Other and unspecified ventral hernia with obstruction, without gangrene (principal); K42.9 Umbilical hernia without obstruction or gangrene; K21.9 Gastro-esophageal reflux disease without esophagitis; Z87.11 Personal history of peptic ulcer disease
CPT/HCPCS: 49594; 88302; J0690; J2370; J2405; J2704; J2710; J3010; J3490; J7030

== ENCOUNTER → 2022-04-09 09:07 | Outpatient (BNVA) | payer MEDICARE, SELFPAY | PROVIDERS: PCP Family Medicine; Visit Provider Surgery | DX: Z98.890 Other specified postprocedural states (principal); Z87.19 Personal history of other diseases of the digestive system | CPT/HCPCS: 99024 ==

== ENCOUNTER 2022-07-26 18:29 | Emergency (ER) | payer MEDICARE, SELFPAY ==
[2022-07-26] VITALS (10 sets, daily range): BP systolic 116–184; BP diastolic 74–125; PULSE 71–135; RESP 16; TEMP 36.6; O2SAT 69–99; BMI 18.4
[2022-07-26 19:21] LABS: Basophils # 0.1 10^3/uL (0.0-0.1); Basophils % 0.5 %; Eosinophils # 0.3 10^3/uL (0.0-0.8); Eosinophils % 2.2 %; Lymphocytes # 1.7 10^3/uL (0.8-4.8); Lymphocytes % 14.5 %; Mean Corpuscular HGB Conc 32.6 g/dL (30.0-36.0); Mean Corpuscular Hemoglobin 30.1 pg (28.0-34.0); Mean Corpuscular Volume 92.5 fl (80-94); Mean Platelet Volume 10.5 fL (7.4-10.4); Monocytes % 8.6 %; Neutrophils # 8.73 10^3/uL (1.8-7.7); Neutrophils % 73.9 %; Nucleated Red Blood Cells % 0.2 %; Platelet Count 245 10^3/cmm (130-400); Red Blood Count 4.65 10^6/uL (4.1-5.3); Red Cell Distribution Width 14.9 % (12.1-15.1); White Blood Count 11.8 10^3/uL (4.0-10.0)
[2022-07-26 19:39] LABS: Alanine Aminotransferase 23 U/L (0-41); Albumin Level 4.3 g/dL (3.5-5.2); Alkaline Phosphatase 76 U/L (40-130); Anion Gap 20.7 (5-19); Aspartate Amino Transferase 27 U/L (0-40); Blood Urea Nitrogen 44 mg/dL (8-23); Calcium 9.3 mg/dL (8.5-10.5); Carbon Dioxide 23 mmol/L (22-29); Chloride 98 mmol/L (98-107); Globulin 2.6 g/dL (1.3-4.6); Glucose 123 mg/dL (65-115); Lipase 13 U/L (13-60); Osmolality Calculated 301 mOsm/kg (285-295); Sodium 139 mmol/L (136-145); Total Bilirubin 1.8 mg/dL (0.15-1.2); Total Protein 6.9 g/dL (6.6-8.7)
[2022-07-26 20:07] LABS: Potassium 2.7 mmol/L (3.5-5.1)
--- NOTE | 2022-07-26 20:11 | CTR_ITS ---
PROCEDURE INFORMATION: Exam: CT Abdomen And Pelvis With Contrast Exam date and time: 07/26/2022 8:44 PM Age: 81 years old Clinical indication: Bloating and nausea and vomiting; Abdominal pain; Generalized; Prior surgery; Surgery date: 6+ months; Surgery type: Ventral hernia repair, cholecystectomy; Additional info: Abd pain , n/v/distension TECHNIQUE: Imaging protocol: Computed tomography of the abdomen and pelvis with contrast. Radiation optimization: All CT scans at this facility use at least one of these dose optimization techniques: automated exposure control; mA and/or kV adjustment per patient size (includes targeted exams where dose is matched to clinical indication); or iterative reconstruction. Contrast material: OMNI 350; Contrast volume: 70 ml; Contrast route: INTRAVENOUS (IV); REPORTING DATA: Count of CT and Cardiac NM exams in prior 12 months: This patient has received [address] and 0 known cardiac nuclear medicine studies in the 12 months prior to the current study. COMPARISON: CT chest abdpel w/*[id number] 12/13/2021 4:38 PM RADIATION DOSE METRICS: Total DLP (mGy-cm): 416.58 FINDINGS: Lungs: Streaky bibasilar atelectasis noted. No consolidation. Heart: Normal heart size. Coronary atherosclerotic calcifications seen. No pericardial effusion. Liver: Normal. No mass. Gallbladder and bile ducts: The gallbladder has been surgically removed. Pancreas: Normal. No ductal dilation. Spleen: There is tiny calcific densities scattered throughout the spleen, likely sequela of previous granulomatous disease. The spleen is otherwise unremarkable. Adrenal glands: Normal. No mass. Kidneys and ureters: Symmetric enhancement of the kidneys. There are bilateral nonobstructive kidney stones. No hydronephrosis. Left renal cysts noted, the largest measuring 5.0 cm. Subcentimeter focus of decreased attenuation in the right kidney is too small to characterize. Stomach and bowel: There is an air distended colon with scattered air-fluid levels and crossing of sigmoid colon loops in the mid pelvis, concerning for closed loop obstruction/sigmoid volvulus. Appendix: No evidence of appendicitis. Intraperitoneal space: Trace amount of ascites noted in the lower abdomen. Vasculature: Mild diffuse atherosclerotic disease is present. Lymph nodes: Unremarkable. No enlarged lymph nodes. Urinary bladder: Unremarkable as visualized. Reproductive: Unremarkable as visualized. Bones/joints: Degenerative changes of the spine seen. Soft tissues: Unremarkable. CT/CT abdomen pelvis w con* [id number] IMPRESSION: Imaging findings of sigmoid volvulus. COMMENTS: Consistent with the [employer]'s Incidental Findings Committee white paper (J Am Samaria Radiol 2018): Any incidental renal lesion less than 1 cm or classified as too small to characterize, or any incidental cystic renal lesion characterized as simple-appearing, is likely benign. No follow-up imaging is recommended for these lesions per consensus recommendations based on imaging criteria.
[2022-07-26] MEDS: iohexol 350 mg/mL 500 mL Btl (per mL) IV (20:15)
--- NOTE | 2022-07-26 20:18 | ED_ITS ---
HPI - Abdominal Pain General: Chief Complaint: Abdominal Pain Stated Complaint: abd pain Time Seen by Provider: 07/26/22 18:42 History of Present Illness: Patient presents to the ER with complaints of generalized weakness abdominal pain with nausea vomiting since Friday. Patient reports not been able to get around very good because he is so weak. Patient reports a distended abdomen and not eating or drinking much at all. MD elicited complaint: abdominal pain (Abdominal distention, nausea and vomiting) Pertinent past history: diverticulitis Onset (ago): day(s) (About 5 days ago) Pain Consistency: constant Location: Diffuse Severity: moderate Quality: aching Radiation: none Migration to: no migration Exacerbating factors: eating Relieving factors: nothing Associated Symptoms: Reports diarrhea, nausea, poor appetite and vomiting Review of Systems General: Reports: 10 or more systems reviewed and unremarkable except in HPI and below GI: Reports: nausea, vomiting and diarrhea PFSH ED PFSH: Medical History Gout Peptic ulcer disease Psoriasis Umbilical hernia Ventral hernia Surgical History History of cholecystectomy History of esophagogastroduodenoscopy (EGD) Hx of arthroscopy of left knee Status post repair of ventral hernia Social History Smoking and tobacco status: never smoked Alcohol intake: never Substance/Drug Use: never Physical Exam Const: COMMON NORMALS: no acute distress, average body habitus, patient oriented x3, no limitations, healthy appearing, alert and well nourished HENMT: COMMON NORMALS: normocephalic, atraumatic, hearing grossly normal bilaterally, Normal external nose present and moist oral mucous membranes HEAD & SCALP: normocephalic and atraumatic NOSE: Normal external nose present Eye: COMMON NORMALS: Equal, round and reactive pupils present, EOMs intact bilaterally, conjunctivae normal and no scleral icterus CONJUNCTIVA: Yes conjunctivae normal PUPIL: Yes Equal, round and reactive pupils present Neck/C-Spine: COMMON NORMALS: full ROM, no lymphadenopathy, supple, no meningeal signs, no JVD and Thyroid normal THYROID: Thyroid normal Lymph: LYMPHATIC: no lymphadenopathy noted Chest: COMMONS NORMALS: normal inspection of the chest and normal palpation of entire chest wall Resp: COMMON NORMALS: normal respiratory effort, No retractions, No use of accessory muscles and clear to auscultation bilaterally AUSCULTATION: clear to auscultation bilaterally Cardio: COMMON NORMALS: no JVD, regular rate, regular rhythm, S1 normal heart sound present, S2 normal heart sound present, No gallops present (Cardio), No clicks present (Cardio), No murmurs present (Cardio) and No rub (Cardio) RATE: regular rate RHYTHM: regular rhythm HEART SOUNDS: S1 normal heart sound present and S2 normal heart sound present GI: COMMON NORMALS: Soft to palpation INSPECTION: Yes other (Distention) AUSCULTATION: Yes normoactive bowel sounds PALPATION: Yes Soft to palpation, Yes Tenderness to palpation present (GI) (Diffusely), No Hepatomegaly present and No Splenomegaly present : COMMON NORMALS: Yes no CVA tenderness BLADDER/KIDNEY EXAM: Yes no CVA tenderness Back/Pelvis: COMMON NORMALS: no CVA tenderness Neuro: COMMON NORMALS: patient oriented x3 SENSORIUM/ORIENTATION: Yes alert MENINGEAL SIGNS: Yes no meningeal signs Course Vital Signs: Vital signs: Vital Signs Temperature 97.9 F 07/26/22 18:38 Pulse Rate 71 07/26/22 18:38 Respiratory Rate 16 07/26/22 18:38 Blood Pressure 116/74 07/26/22 18:38 Pulse Oximetry 94 07/26/22 18:38 Oxygen Delivery Me thod Room Air 07/26/22 18:38 MDM - Abdominal Pain Medical Decision Making Patient presents to the ER with nausea vomiting abdominal pain. Patient's not been able to keep anything down and is getting weak overall. Lab work shows a white count of 11.8 hemoglobin hematocrit of 14.0 and 43.0 with a platelet count of 245, sodium 139, potassium 2.7, BUN/creatinine of 44 and 1.2, glucose 123, CT scan of the abdomen showed findings consistent with a sigmoid volvulus. Patient was given 40 mg oral potassium 1 L normal saline and 4 mg Zofran IV. Christopher was consulted and he is looking over the images. He says due to the location of this potential obstruction/volvulus that he would need to be seen by colorectal surgeon and suggest transfer. Patient was informed of this and patient would prefer to go to [facility] in [place] if possible. [facility] heat transfer technician called and discussed patient with me in she called back and said Dr. Diehl accept in transfer. Patient be transferred to [facility] Lab Data 07/26/22 19:15 07/26/22 19:15 Labs/Radiology: Radiology Impressions Abdomen/Pelvis CT 07/26/22 20:11 IMPRESSION: Imaging findings of sigmoid volvulus. COMMENTS: Consistent with the [employer]'s Incidental Findings Committee white paper (J Am Samaria Radiol 2018): Any incidental renal lesion less than 1 cm or classified as too small to characterize, or any incidental cystic renal lesion characterized as simple-appearing, is likely benign. No follow-up imaging is recommended for these lesions per consensus recommendations based on imaging criteria. Laboratory Results WBC 11.8 10^3/uL (4.0-10.0) H 07/26/22 19:15 RBC 4.65 10^6/uL (4.1-5.3) 07/26/22 19:15 Hgb 14.0 g/dL (11.7-16.6) 07/26/22 19:15 Hct 43.0 % (42.0-52.0) 07/26/22 19:15 MCV 92.5 fl (80-94) 07/26/22 19:15 MCH 30.1 pg (28.0-34.0) 07/26/22 19:15 MCHC 32.6 g/dL (30.0-36.0) 07/26/22 19:15 RDW 14.9 % (12.1-15.1) 07/26/22 19:15 Plt Count 245 10^3/cmm (130-400) 07/26/22 19:15 MPV 10.5 fL (7.4-10.4) H 07/26/22 19:15 Neut % (Auto) 73.9 % 07/26/22 19:15 Lymph % (Auto) 14.5 % 07/26/22 19:15 [place] % (Auto) 8.6 % 07/26/22 19:15 Eos % (Auto) 2.2 % 07/26/22 19:15 Baso % (Auto) 0.5 % 07/26/22 19:15 Neut # (Auto) 8.73 10^3/uL (1.8-7.7) H 07/26/22 19:15 Lymph # (Auto) 1.7 10^3/uL (0.8-4.8) 07/26/22 19:15 [place] # (Auto) 1.0 10^3/uL (0.2-0.9) H 07/26/22 19:15 Eos # (Auto) 0.3 10^3/uL (0.0-0.8) 07/26/22 19:15 Baso # (Auto) 0.1 10^3/uL (0.0-0.1) 07/26/22 19:15 Nucleated RBC % (auto) 0.2 % 07/26/22 19:15 Nucleated RBCs # 0.0 /100WBC 07/26/22 19:15 Sodium 139 mmol/L (136-145) 07/26/22 19:15 Potassium 2.7 mmol/L (3.5-5.1) L* 07/26/22 19:15 Chloride 98 mmol/L (98-107) 07/26/22 19:15 Carbon Dioxide 23 mmol/L (22-29) 07/26/22 19:15 Anion Gap 20.7 (5-19) H 07/26/22 19:15 BUN 44 mg/dL (8-23) H 07/26/22 19:15 Creatinine 1.2 mg/dL (0.7-1.2) 07/26/22 19:15 GFR Calculation Not Reportable 07/26/22 19:15 Glucose 123 mg/dL (65-115) H 07/26/22 19:15 Calculated Osmolality 301 mOsm/kg (285-295) H 07/26/22 19:15 Calcium 9.3 mg/dL (8.5-10.5) 07/26/22 19:15 Total Bilirubin 1.8 mg/dL (0.15-1.2) H 07/26/22 19:15 AST 27 U/L (0-40) 07/26/22 19:15 ALT 23 U/L (0-41) 07/26/22 19:15 Alkaline Phosphatase 76 U/L (40-130) 07/26/22 19:15 Total Protein 6.9 g/dL (6.6-8.7) 07/26/22 19:15 Albumin 4.3 g/dL (3.5-5.2) 07/26/22 19:15 Globulin 2.6 g/dL (1.3-4.6) 07/26/22 19:15 Lipase 13 U/L (13-60) 07/26/22 19:15 Discharge Plan Discharge Patient Disposition: Xfer Short-Term Hosp Clinical Impression: Sigmoid volvulus, Acute hypokalemia Abdominal pain Qualifiers: Abdominal location: generalized Qualified Code(s): R10.84 - Generalized abdominal pain Condition: Stable Referrals: Xavier Patel MD [Primary Care Provider] - Patient Instructions: Abdominal Pain (ED) Coding Level of Care Code ED Make Up Artist for Kei Ye
[2022-07-26] MEDS: sodium chloride 0.9% 1,000 ML 999 ML IV (21:21)
[2022-07-26] MEDS: ondansetron 2 mg/ML SDV 2 mL 4 MG IVP (21:21)
[2022-07-26] MEDS: potassium chloride ER 20 mEq Tablet 40 MEQ PO (21:21)
--- NOTE | 2022-07-26 21:44 | PC.NURSE ---
Upon administration of PO potassium, patient began to go into a coughing fit after digestion of pill. Patient began to cough up clear sputum while going into a coughing fit. After approximately 6 minutes of on and off coughing, patient oxygen saturation started to drop. Patient was placed on non-rebreather and oxygen sats began to rise. Dr. Galdamez and charge nurse were notified and were brought into the room. Patient oxygen cyndi to 99% on the non-rebreather. Dr. Galdamez notified. No new orders given at this time.
--- NOTE | 2022-07-26 23:47 | PC.NURSE ---
Report called to Cele Cordova RN at [facility].
[2022-07-27] VITALS: BP 125/65; PULSE 92; O2SAT 90
[2022-07-27 00:30] VITALS: BP 128/77; PULSE 93; O2SAT 92
== END 2022-07-27 00:58 | disposition short-term general hospital (02) ==
PROVIDERS: Emergency Medicine; Emergency Provider Emergency Medicine; PCP Family Medicine
DX: K56.2 Volvulus (principal); E87.6 Hypokalemia; R10.84 Generalized abdominal pain
CPT/HCPCS: 36415; 74177; 80053; 83690; 85025; 96361; 96374; 99285; J2405; J7030; Q9967

== ENCOUNTER 2022-08-01 03:58 | Emergency (ER) | payer MEDICARE, SELFPAY ==
[2022-08-01] VITALS (14 sets, daily range): BP systolic 54–136; BP diastolic 21–61; PULSE 42–105; RESP 18–31; O2SAT 65–99; BMI 16.9
--- NOTE | 2022-08-01 04:08 | XRR_ITS ---
PROCEDURE INFORMATION: Exam: XR Chest Exam date and time: 08/01/2022 4:11 AM Age: 81 years old Clinical indication: Shortness of breath; Prior surgery; Surgery date: 6+ months; Surgery type: Gb; Patient HX: Resp distress. Intubation upon er arrival. Check S/P et, central line, and og placement. ; Additional info: SOB TECHNIQUE: Imaging protocol: Radiologic exam of the chest. Views: 1 view. COMPARISON: CT chest abdpel w/*[id number] 12/13/2021 4:38 PM FINDINGS: Tubes, catheters and devices: The endotracheal tube is appropriately positioned in the distal thoracic trachea with the tip above the keisha. The nasogastric tube is appropriately positioned with the tip in the stomach, well beyond the diaphragmatic hiatus. Right internal jugular central line tip is in the right atrium. Lungs: There is no consolidation. There is mild ground-glass opacity in the central aspect of both lungs. Pleural spaces: There is no pleural effusion or pneumothorax. Heart/Mediastinum: Cardiomediastinal contours are unremarkable. Bones/joints: Bones are unremarkable. Gastrointestinal tract: There is gaseous distention of bowel in the upper abdomen. XR/XR chest 1V portable [id number] IMPRESSION: 1. Satisfactory endotracheal tube position. 2. Satisfactory NG tube position. 3. Right internal jugular central line tip is in the right atrium. 4. Mild central lung predominant ground-glass opacity. Possible mild edema. 5. Gas distention of bowel in the upper abdomen.
[2022-08-01 04:12] LABS: ABG PCO2 50.4 mmHg (35-45); Arterial Blood Gas Hematocrit 41.4 % (42-52); Base Excess ABG -19.3 mmol/L (-2.0-2.0); Blood Gas Allen Test Pos; Blood Gas Operator Identificat JB; Blood Gas Sample Site Radial, right; Blood Gas Sample Type Arterial; Carboxyhemoglobin 1.4 %THgb (0.4-20.1); HCO3 ABG 12.1 mmol/L (22-26); HGB O2 Sat 93.1 % (95-100); Ionized Calcium Level - ABG 1.2 mmol/L (1.1-1.4); Methemoglobin 1.1 % (0.4-1.5); Oxygen Device NRB; Oxygen Saturation ABG 95.6; Potassium Level - ABG 6.7 mmol/L (3.5-5.0); Total Hemoglobin 13.5 g/dL (14-18)
--- NOTE | 2022-08-01 04:19 | PC.NURSE ---
Patient came in unresponsive/guppy breathing. O2 unable to read. Dr Galdamez at bedside. Dr Galdamez spoke with family outside patient room and family agreed to intubate patient. Patient intubated at 0404. 0425 OG tube inserted. Verbal order for D50 as blood sugar was in 50s, and order for Levo and precedex if needed. Patient was intubated without any sedatives.
[2022-08-01] MEDS: sodium chloride 0.9% 1,000 ML 999 ML IV (04:20)
[2022-08-01 04:24] LABS: ABG PH Result 6.99 (7.35-7.45)
[2022-08-01] MEDS: dexmedetomidine 400 MCG in sodium chloride 0.9% (100 ml) 100 ML IV (04:36)
--- NOTE | 2022-08-01 05:01 | W.ED.SOB ---
Documented by User: Eladio Galdamez DO 08/01/22 05:48 HPI - SOB/Dyspnea General: Chief Complaint: Shortness of Breath/Dyspnea Stated Complaint: RESP. DISTRESS Time Seen by Provider: 08/01/22 07:21 Limitations: altered mental status and physical limitation History of Present Illness: HPI Narrative: Patient presents to the ER by EMS and unresponsive state guppy breathing on 15 L nonrebreather with an IO in place. Patient had bowel surgery for a blockage at [facility] and was released approximately 2 days ago. Per patient's family he was alert oriented and talking upon discharge when he got him home yesterday. Approximately 130 this morning was with the patient's last known well when he was still active. When he presented to the ER he was unresponsive to sternal rub. Review of Systems General: Reports: ROS unobtainable due to medical condition PFSH ED PFSH: Medical History Gout Peptic ulcer disease Psoriasis Umbilical hernia Ventral hernia Surgical History History of cholecystectomy History of esophagogastroduodenoscopy (EGD) Hx of arthroscopy of left knee Status post repair of ventral hernia Social History Smoking and tobacco status: never smoked Alcohol intake: never Substance/Drug Use: never Physical Exam Const: EXAM LIMITATIONS: altered mental status and physical limitations GENERAL APPEARANCE: frail appearing and appears older than stated age NUTRITIONAL APPEARANCE: cachectic ORIENTATION/CONSCIOUSNESS: Yes Other orientation findings (Unresponsive to painful stimuli) HENMT: COMMON NORMALS: normocephalic, atraumatic, Normal external nose present and moist oral mucous membranes HEAD & SCALP: normocephalic and atraumatic NOSE: Normal external nose present Eye: OTHER: No ocular reflex noted Neck/C-Spine: COMMON NORMALS: no JVD Chest: COMMONS NORMALS: normal inspection of the chest and normal palpation of entire chest wall Resp: EFFORT & INSPECTION: Yes decreased respiratory effort AUSCULTATION: diminished lung sounds Cardio: COMMON NORMALS: no JVD, regular rate, regular rhythm and S1 normal heart sound present RATE: regular rate RHYTHM: regular rhythm HEART SOUNDS: S1 normal heart sound present GI: OTHER: Soft distended hypoactive bowel sounds healing incision from prior surgery noted Neuro: COMATOSE PATIENT: No corneal reflex present and No response to noxious stimuli present Procedures Central Line Placement Right IJ: Time Out Performed: Yes Patient Placed on Monitor/Pulse Ox: Yes MD Prep: mask, gown and gloves Central Line Prep: Chlorhexidine scrub and sterile drapes applied Local Anesthetic: lidocaine 1% Amount of anesthesia used (mL): 2 Ultrasound Used for Placement: Yes Central Line Lumen Inserted: triple Post Procedure: sutured in place, good blood return, all ports aspirated, flushed, capped and sterile dressing applied Post Procedure X-Ray: tip of catheter in good position and no pneumothorax seen Patient Tolerated Procedure: well Complications: none Intubation Time out performed: Yes sedative: none Laryngoscope: fiber optic video scope ET Tube Size: 8 Tube Secured Depth (cm): 24 Tube Secured Location: teeth (Gums) Tube Placement Confirmation: visualized tube passing through cords, equal breath sounds bilaterally and no breath sounds over epigastrium Patient Tolerated Procedure: well and no complications Course Vital Signs: Vital signs: Vital Signs Pulse Rate 85 08/01/22 05:44 Respiratory Rate 21 H 08/01/22 05:44 Blood Pressure 136/61 08/01/22 05:44 Pulse Oximetry 99 08/01/22 05:35 Oxygen Delivery Me thod Mechanical Ventil ation 08/01/22 05:35 Fraction of Inspir ed Oxygen 60 08/01/22 05:55 MDM - SOB/Dyspnea Medical Decision Making Patient presented by EMS on a nonrebreather at 15 L with barely any breathing effort noted. Patient's blood pressure was low approximately 60/38. An ABG was obtained which showed the patient was severely acidotic at 6.99 PCO2 elevated at 50 PO2 decreased at 94 on a nonrebreather with a bicarb of 12.1 and hemoglobin of 13.5 potassium of 6.7. Patient was given 1 amp of D50 and bicarb drip per pharmacy. Patient had an IO after bolusing him some fluid on a pressure bag blood pressure did not increase nor was patient any more responsive. Family was talked to who decided to intubate the patient and put him on a ventilator. Patient was intubated without difficulty, patient was started on Levophed and a central line was placed in his right IJ with no complications. This improved the patient's blood pressure up to over 100. And his pulse went up to approximately 100 also. OG tube was placed to suction out black coffee-ground type emesis. Patient was placed on a Precedex drip. Consult to the hospitalist Dr. Birmingham who asked for CT of the head abdomen pelvis and agreed to take the patient in for further evaluation and treatment to the ICU. Lab Data 08/01/22 05:17 08/01/22 06:35 Labs/Radiology: Laboratory Results WBC 10.0 10^3/uL (4.0-10.0) 08/01/22 05:17 RBC 3.39 10^6/uL (4.1-5.3) L 08/01/22 05:17 Hgb 10.4 g/dL (11.7-16.6) L 08/01/22 05:17 Hct 34.0 % (42.0-52.0) L 08/01/22 05:17 MCV 100.3 fl (80-94) H 08/01/22 05:17 MCH 30.7 pg (28.0-34.0) 08/01/22 05:17 MCHC 30.6 g/dL (30.0-36.0) 08/01/22 05:17 RDW 15.9 % (12.1-15.1) H 08/01/22 05:17 Plt Count 191 10^3/cmm (130-400) 08/01/22 05:17 MPV 10.6 fL (7.4-10.4) H 08/01/22 05:17 Neut % (Auto) 89.7 % 08/01/22 05:17 Lymph % (Auto) 5.3 % 08/01/22 05:17 [place] % (Auto) 3.9 % 08/01/22 05:17 Eos % (Auto) 0.1 % 08/01/22 05:17 Baso % (Auto) 0.1 % 08/01/22 05:17 Neut # (Auto) 8.99 10^3/uL (1.8-7.7) H 08/01/22 05:17 Lymph # (Auto) 0.5 10^3/uL (0.8-4.8) L 08/01/22 05:17 [place] # (Auto) 0.4 10^3/uL (0.2-0.9) 08/01/22 05:17 Eos # (Auto) 0.0 10^3/uL (0.0-0.8) 08/01/22 05:17 Baso # (Auto) 0.0 10^3/uL (0.0-0.1) 08/01/22 05:17 Nucleated RBC % (auto) 0.6 % 08/01/22 05:17 Nucleated RBCs # 0.1 /100WBC 08/01/22 05:17 PT 22.70 SECONDS (12.1-14.9) H 08/01/22 05:17 INR 1.92 (0.8-1.2) H 08/01/22 05:17 Specimen Type Arterial 08/01/22 05:30 Sample Site Brachial, right 08/01/22 05:30 ABG pH 7.10 (7.35-7.45) L* 08/01/22 05:30 ABG pCO2 28.5 mmHg (35-45) L 08/01/22 05:30 ABG pO2 392.0 mmHg (80.0-100.0) H 08/01/22 05:30 ABG HCO3 8.9 mmol/L (22-26) L 08/01/22 05:30 ABG O2 Saturation > 100.0 08/01/22 05:30 ABG Base Excess -19.4 mmol/L (-2.0-2.0) L 08/01/22 05:30 Jostin Test N/a 08/01/22 05:30 A-a O2 Gradient 34.7 mmHg (5-10) H 08/01/22 05:30 Hematocrit 34.5 % (42-52) L 08/01/22 05:30 Hgb O2 Saturation 98.3 % (95-100) 08/01/22 05:30 Carboxyhemoglobin 0.9 %THgb (0.4-20.1) 08/01/22 05:30 Methemoglobin 1.3 % (0.4-1.5) 08/01/22 05:30 Total Hemoglobin 11.3 g/dL (14-18) L 08/01/22 05:30 Sodium 132.0 mmol/L (131-143) 08/01/22 05:30 Potassium 6.0 mmol/L (3.5-5.0) H 08/01/22 05:30 Glucose 110.0 mg/dL (70-115) 08/01/22 05:30 Ionized Calcium 1.2 mmol/L (1.1-1.4) 08/01/22 05:30 O2 Delivery Device Vent 08/01/22 05:30 O2 Liters/Min 15.0 % 08/01/22 04:00 FiO2 100.0 % 08/01/22 05:30 PEEP 5.0 cmH20 08/01/22 05:30 Superintendent Laundry ID Alewe 08/01/22 05:30 Sodium 134 mmol/L (136-145) L 08/01/22 05:17 Potassium 6.3 mmol/L (3.5-5.1) H 08/01/22 05:17 Chloride 103 mmol/L (98-107) 08/01/22 05:17 Carbon Dioxide 8 mmol/L (22-29) L* 08/01/22 05:17 Anion Gap 29.3 (5-19) H 08/01/22 05:17 BUN 67 mg/dL (8-23) H 08/01/22 05:17 Creatinine 1.8 mg/dL (0.7-1.2) H 08/01/22 05:17 GFR Calculation Not Reportable 08/01/22 05:17 Glucose 124 mg/dL (65-115) H 08/01/22 05:17 POC Glucose 47 mg/dL (70-110) L 08/01/22 05:32 Calculated Osmolality 299 mOsm/kg (285-295) H 08/01/22 05:17 Lactic Acid 13.5 mmol/L (0.5-2.2) H* 08/01/22 05:17 Calcium 8.1 mg/dL (8.5-10.5) L 08/01/22 05:17 Magnesium 2.3 mg/dL (1.7-2.3) 08/01/22 05:17 Total Bilirubin 1.4 mg/dL (0.15-1.2) H 08/01/22 05:17 AST 41 U/L (0-40) H 08/01/22 05:17 ALT 20 U/L (0-41) 08/01/22 05:17 Alkaline Phosphatase 53 U/L (40-130) 08/01/22 05:17 Troponin T Baseline 737 ng/L (0-15) H* 08/01/22 05:17 Total Protein 3.6 g/dL (6.6-8.7) L 08/01/22 05:17 Albumin 1.4 g/dL (3.5-5.2) L 08/01/22 05:17 Globulin 2.2 g/dL (1.3-4.6) 08/01/22 05:17 Procalcitonin 8.95 ng/mL (0-0.5) H 08/01/22 05:17 Critical Care Time Critical Care Time: Critical Care Time: Yes Attestation: This case had a high probability of a clinically significant, sudden, or life threatening deterioration of this patient's condition which required my full and direct attention, intervention and personal management. Discharge Plan Discharge Patient Disposition: Admit Provider: Radha Birmingham Clinical Impression: Acute respiratory failure with hypoxia, Acute respiratory acidosis, Acute hypotension, Acute hyperkalemia, Hypoglycemia, Acute upper gastrointestinal bleeding, DIC (disseminated intravascular coagulation) Condition: Stable Coding Level of Care Code ED Surveyor'S Assistant for Chg Fwd Documented by User: William Amaro DO 08/01/22 07:37 HPI - SOB/Dyspnea General: Chief Complaint: Shortness of Breath/Dyspnea Stated Complaint: RESP. DISTRESS Time Seen by Provider: 08/01/22 07:21 PFSH ED PFSH: Medical History Gout Peptic ulcer disease Psoriasis Umbilical hernia Ventral hernia Surgical History History of cholecystectomy History of esophagogastroduodenoscopy (EGD) Hx of arthroscopy of left knee Status post repair of ventral hernia Social History Smoking and tobacco status: never smoked Alcohol intake: never Substance/Drug Use: never Course Vital Signs: Vital signs: Vital Signs Pulse Rate 85 08/01/22 05:44 Respiratory Rate 21 H 08/01/22 05:44 Blood Pressure 136/61 08/01/22 05:44 Pulse Oximetry 99 08/01/22 05:35 Oxygen Delivery Me thod Mechanical Ventil ation 08/01/22 05:35 Fraction of Inspir ed Oxygen 60 08/01/22 05:55 MDM - SOB/Dyspnea Medical Decision Making Patient presented by EMS on a nonrebreather at 15 L with barely any breathing effort noted. Patient's blood pressure was low approximately 60/38. An ABG was obtained which showed the patient was severely acidotic at 6.99 PCO2 elevated at 50 PO2 decreased at 94 on a nonrebreather with a bicarb of 12.1 and hemoglobin of 13.5 potassium of 6.7. Patient was given 1 amp of D50 and bicarb drip per pharmacy. Patient had an IO after bolusing him some fluid on a pressure bag blood pressure did not increase nor was patient any more responsive. Family was talked to who decided to intubate the patient and put him on a ventilator. Patient was intubated without difficulty, patient was started on Levophed and a central line was placed in his right IJ with no complications. This improved the patient's blood pressure up to over 100. And his pulse went up to approximately 100 also. OG tube was placed to suction out black coffee-ground type emesis. Patient was placed on a Precedex drip. Consult to the hospitalist Dr. Birmingham who asked for CT of the head abdomen pelvis and agreed to take the patient in for further evaluation and treatment to the ICU. Patient present in the ER at change of shift. He is pending admission discussed with Dr. Aguilar. Reviewed the chart and examined the patient's abdomen is tense and distended there is scant bowel sounds. Suspect perforated viscus CT of the abdomen is pending. He has hyperkalemia is PT is elevated he is not on any anticoagulation suspect he is also in DIC and septic. Ordered calcium chloride albuterol and sodium bicarb for his hyperkalemia. He has coffee-ground emesis from his NG Protonix was ordered. Empiric antibiotics and a sepsis fluid bolus were also ordered. During the timeframe that these orders were being placed patient became nonresponsive and went into cardiac arrest. See code flow sheet for precise details on resuscitative efforts. We did briefly achieve ROSC and patient had a palpable pulse lasted for approximately 1 minute. Patient had some agonal respirations that were spontaneous. Resumed CPR patient found to be in asystole thereafter. Discussed with family member who is present. At this point resuscitative efforts seem futile even if we are able to reestablish pulse given his overall condition and his present lab work on presentation do not anticipate the patient being stable enough to proceed to surgery. Discussed with the family member they expressed understanding and agreed to ceasing resuscitative efforts. Time of 0658. Lab Data 08/01/22 05:17 08/01/22 06:35 Labs/Radiology: Laboratory Results WBC 10.0 10^3/uL (4.0-10.0) 08/01/22 05:17 RBC 3.39 10^6/uL (4.1-5.3) L 08/01/22 05:17 Hgb 10.4 g/dL (11.7-16.6) L 08/01/22 05:17 Hct 34.0 % (42.0-52.0) L 08/01/22 05:17 MCV 100.3 fl (80-94) H 08/01/22 05:17 MCH 30.7 pg (28.0-34.0) 08/01/22 05:17 MCHC 30.6 g/dL (30.0-36.0) 08/01/22 05:17 RDW 15.9 % (12.1-15.1) H 08/01/22 05:17 Plt Count 191 10^3/cmm (130-400) 08/01/22 05:17 MPV 10.6 fL (7.4-10.4) H 08/01/22 05:17 Neut % (Auto) 89.7 % 08/01/22 05:17 Lymph % (Auto) 5.3 % 08/01/22 05:17 [place] % (Auto) 3.9 % 08/01/22 05:17 Eos % (Auto) 0.1 % 08/01/22 05:17 Baso % (Auto) 0.1 % 08/01/22 05:17 Neut # (Auto) 8.99 10^3/uL (1.8-7.7) H 08/01/22 05:17 Lymph # (Auto) 0.5 10^3/uL (0.8-4.8) L 08/01/22 05:17 [place] # (Auto) 0.4 10^3/uL (0.2-0.9) 08/01/22 05:17 Eos # (Auto) 0.0 10^3/uL (0.0-0.8) 08/01/22 05:17 Baso # (Auto) 0.0 10^3/uL (0.0-0.1) 08/01/22 05:17 Nucleated RBC % (auto) 0.6 % 08/01/22 05:17 Nucleated RBCs # 0.1 /100WBC 08/01/22 05:17 PT 22.70 SECONDS (12.1-14.9) H 08/01/22 05:17 INR 1.92 (0.8-1.2) H 08/01/22 05:17 Specimen Type Arterial 08/01/22 05:30 Sample Site Brachial, right 08/01/22 05:30 ABG pH 7.10 (7.35-7.45) L* 08/01/22 05:30 ABG pCO2 28.5 mmHg (35-45) L 08/01/22 05:30 ABG pO2 392.0 mmHg (80.0-100.0) H 08/01/22 05:30 ABG HCO3 8.9 mmol/L (22-26) L 08/01/22 05:30 ABG O2 Saturation > 100.0 08/01/22 05:30 ABG Base Excess -19.4 mmol/L (-2.0-2.0) L 08/01/22 05:30 Jostin Test N/a 08/01/22 05:30 A-a O2 Gradient 34.7 mmHg (5-10) H 08/01/22 05:30 Hematocrit 34.5 % (42-52) L 08/01/22 05:30 Hgb O2 Saturation 98.3 % (95-100) 08/01/22 05:30 Carboxyhemoglobin 0.9 %THgb (0.4-20.1) 08/01/22 05:30 Methemoglobin 1.3 % (0.4-1.5) 08/01/22 05:30 Total Hemoglobin 11.3 g/dL (14-18) L 08/01/22 05:30 Sodium 132.0 mmol/L (131-143) 08/01/22 05:30 Potassium 6.0 mmol/L (3.5-5.0) H 08/01/22 05:30 Glucose 110.0 mg/dL (70-115) 08/01/22 05:30 Ionized Calcium 1.2 mmol/L (1.1-1.4) 08/01/22 05:30 O2 Delivery Device Vent 08/01/22 05:30 O2 Liters/Min 15.0 % 08/01/22 04:00 FiO2 100.0 % 08/01/22 05:30 PEEP 5.0 cmH20 08/01/22 05:30 Superintendent Laundry ID Alewe 08/01/22 05:30 Sodium 134 mmol/L (136-145) L 08/01/22 05:17 Potassium 6.3 mmol/L (3.5-5.1) H 08/01/22 05:17 Chloride 103 mmol/L (98-107) 08/01/22 05:17 Carbon Dioxide 8 mmol/L (22-29) L* 08/01/22 05:17 Anion Gap 29.3 (5-19) H 08/01/22 05:17 BUN 67 mg/dL (8-23) H 08/01/22 05:17 Creatinine 1.8 mg/dL (0.7-1.2) H 08/01/22 05:17 GFR Calculation Not Reportable 08/01/22 05:17 Glucose 124 mg/dL (65-115) H 08/01/22 05:17 POC Glucose 47 mg/dL (70-110) L 08/01/22 05:32 Calculated Osmolality 299 mOsm/kg (285-295) H 08/01/22 05:17 Lactic Acid 13.5 mmol/L (0.5-2.2) H* 08/01/22 05:17 Calcium 8.1 mg/dL (8.5-10.5) L 08/01/22 05:17 Magnesium 2.3 mg/dL (1.7-2.3) 08/01/22 05:17 Total Bilirubin 1.4 mg/dL (0.15-1.2) H 08/01/22 05:17 AST 41 U/L (0-40) H 08/01/22 05:17 ALT 20 U/L (0-41) 08/01/22 05:17 Alkaline Phosphatase 53 U/L (40-130) 08/01/22 05:17 Troponin T Baseline 737 ng/L (0-15) H* 08/01/22 05:17 Total Protein 3.6 g/dL (6.6-8.7) L 08/01/22 05:17 Albumin 1.4 g/dL (3.5-5.2) L 08/01/22 05:17 Globulin 2.2 g/dL (1.3-4.6) 08/01/22 05:17 Procalcitonin 8.95 ng/mL (0-0.5) H 08/01/22 05:17 Critical Care Time Critical Care Time: Total Critical Care Time: 40 Attestation: The high probability of a clinically significant, sudden or life threatening deterioration of the patient's [] system(s) required my full and direct attention, intervention and personal management. The critical care time is as shown. This time is in addition to time spent performing any reported procedures but includes the following: [x] Data and vital sign review and interpretation [x] Patient assessment, examination and intervention [x] Documentation [x] Medication orders and management Discharge Plan Discharge Patient Disposition: Admit Provider: Radha Birmingham Clinical Impression: Acute respiratory failure with hypoxia, Acute respiratory acidosis, Acute hypotension, Acute hyperkalemia, Hypoglycemia, Acute upper gastrointestinal bleeding, DIC (disseminated intravascular coagulation) Condition: Stable Coding Level of Care Code ED Surveyor'S Assistant for Kei Ye
--- NOTE | 2022-08-01 05:17 | ECG_ITS ---
[facility] Test Date: 2022-08-01 Pat Name: Andre Nichole Department: Room: ICU11 Gender: Male Infertility Nurse: : 1940 Requested By: Eladio Galdamez Order Number: [id number] Bobby MD: Fanny Cornelius M.D. Measurements Intervals [place] Rate: 74 P: 45 OK: 182 QRS: 56 QRSD: 131 T: 80 QT: 357 QTc: 398 Interpretive Statements SINUS RHYTHM INTRAVENTRICULAR CONDUCTION DELAY [130+ ms QRS DURATION] Compared to ECG 02/04/2022 07:25:06 Intraventricular conduction delay now present Electronically Signed On 08-01-2022 13:01:06 CDT by Fanny Cornelius M.D. [id number] f
[2022-08-01 05:28] LABS: Basophils % 0.1 %; Eosinophils % 0.1 %; Hemoglobin 10.4 g/dL (11.7-16.6); Lymphocytes # 0.5 10^3/uL (0.8-4.8); Lymphocytes % 5.3 %; Mean Corpuscular HGB Conc 30.6 g/dL (30.0-36.0); Mean Corpuscular Hemoglobin 30.7 pg (28.0-34.0); Mean Corpuscular Volume 100.3 fl (80-94); Mean Platelet Volume 10.6 fL (7.4-10.4); Monocytes # 0.4 10^3/uL (0.2-0.9); Monocytes % 3.9 %; Neutrophils # 8.99 10^3/uL (1.8-7.7); Neutrophils % 89.7 %; Nucleated Red Blood Cells # 0.1 /100WBC; Nucleated Red Blood Cells % 0.6 %; Platelet Count 191 10^3/cmm (130-400); Red Blood Count 3.39 10^6/uL (4.1-5.3); Red Cell Distribution Width 15.9 % (12.1-15.1)
[2022-08-01 05:41] LABS: ABG PCO2 28.5 mmHg (35-45); Alveolar-Arterial Oxygen Gradi 34.7 mmHg (5-10); Arterial Blood Gas Hematocrit 34.5 % (42-52); Base Excess ABG -19.4 mmol/L (-2.0-2.0); Blood Gas Sample Site Brachial, right; Blood Gas Sample Type Arterial; Carboxyhemoglobin 0.9 %THgb (0.4-20.1); HCO3 ABG 8.9 mmol/L (22-26); HGB O2 Sat 98.3 % (95-100); Ionized Calcium Level - ABG 1.2 mmol/L (1.1-1.4); Methemoglobin 1.3 % (0.4-1.5); Oxygen Device VENT; Oxygen Saturation ABG > 100.0; Total Hemoglobin 11.3 g/dL (14-18)
[2022-08-01] MEDS: sodium bicarbonate 150 MEQ in dextrose 5% 1,000 ML 100 MEQ IV (05:47)
[2022-08-01 05:48] LABS: Alanine Aminotransferase 20 U/L (0-41); Albumin Level 1.4 g/dL (3.5-5.2); Alkaline Phosphatase 53 U/L (40-130); Anion Gap 29.3 (5-19); Aspartate Amino Transferase 41 U/L (0-40); Blood Urea Nitrogen 67 mg/dL (8-23); Calcium 8.1 mg/dL (8.5-10.5); Chloride 103 mmol/L (98-107); Globulin 2.2 g/dL (1.3-4.6); Glucose 124 mg/dL (65-115); Magnesium 2.3 mg/dL (1.7-2.3); Osmolality Calculated 299 mOsm/kg (285-295); Potassium 6.3 mmol/L (3.5-5.1); Sodium 134 mmol/L (136-145); Total Bilirubin 1.4 mg/dL (0.15-1.2); Total Protein 3.6 g/dL (6.6-8.7)
[2022-08-01 05:49] LABS: Slide Review Slide Review Perform
[2022-08-01 05:50] LABS: Lactic Sepsis W/Reflex 13.5 mmol/L (0.5-2.2)
[2022-08-01 05:51] LABS: Carbon Dioxide 8 mmol/L (22-29); Troponin(5th) Baseline 737 ng/L (0-15)
[2022-08-01 05:54] LABS: Procalcitonin 8.95 ng/mL (0-0.5)
[2022-08-01 06:04] LABS: INR 1.92 (0.8-1.2)
[2022-08-01] MEDS: albuterol 2.5 mg/3 mL Neb 10 MG INHALATION (06:33)
[2022-08-01] MEDS: calcium chloride 10% Syr 10 mL 2 GM IVP (06:33)
[2022-08-01 06:47] LABS: Hematocrit 35.2 % (42.0-52.0); Hemoglobin 10.8 g/dL (11.7-16.6); Mean Corpuscular HGB Conc 30.7 g/dL (30.0-36.0); Mean Corpuscular Hemoglobin 30.4 pg (28.0-34.0); Mean Corpuscular Volume 99.2 fl (80-94); Platelet Count 187 10^3/cmm (130-400); Red Blood Count 3.55 10^6/uL (4.1-5.3); Red Cell Distribution Width 15.9 % (12.1-15.1); White Blood Count 9.7 10^3/uL (4.0-10.0)
[2022-08-01 07:02] LABS: INR 1.94 (0.8-1.2)
[2022-08-01 07:03] LABS: Anion Gap 30.2 (5-19); Blood Urea Nitrogen 69 mg/dL (8-23); Calcium 8.3 mg/dL (8.5-10.5); Chloride 100 mmol/L (98-107); Fibrinogen 494 mg/dL (174-498); Glucose 195 mg/dL (65-115); Osmolality Calculated 301 mOsm/kg (285-295); Partial Thromboplastin Time 52.1 SECONDS (23.9-36.7); Potassium 6.2 mmol/L (3.5-5.1); Sodium 133 mmol/L (136-145)
--- NOTE | 2022-08-01 07:04 | PC.NURSE ---
Patient lost pulse at 0635, code was called, Dr Amaro at bedside. supervisor mapping there and taking notes. Dr Amaro at bedside ordering meds throughout the code. supervisor mapping documenting code sheet.
[2022-08-01 07:10] LABS: Carbon Dioxide 9 mmol/L (22-29)
[2022-08-01 07:11] LABS: Reflex Lactate Order REFLEX LACTIC ORDERD
[2022-08-01 07:13] LABS: D Dimer 9.94 ug/mIFEU (0-0.59)
[2022-08-01 07:21] LABS: Glucose Point of Care 47 mg/dL (70-110)
[2022-08-01 07:21] LABS: Glucose Point of Care 56 mg/dL (70-110)
--- NOTE | 2022-08-01 07:28 | PC.NURSE ---
MTS called and notified of patient passing @[id number]. Patient currently holding for MTS decision and contact with patient family.
[2022-08-01 07:37] LABS: Slide Review Slide Review Perform
[2022-08-01 07:38] LABS: Absolute Neutrophil 8.1 10^3/cmm (1.4-6.5); Absolute Segmented Neutrophil 3.9 10/cmm (1.6-7.1); Band Neutrophils Absolute 4.2 10^3/cmm (0.0-1.2); Eosinophils 0 %; Lymphocytes 10 %; Lymphocytes Absolute 1.2 10^3/cmm (1.2-3.4); Platelet Estimate Normal (Normal); Segmented Neutrophils 40 %; Total Cells Counted 100 (0-100)
[2022-08-01 07:39] LABS: Anisocytosis Trace
--- NOTE | 2022-08-01 07:43 | PC.NURSE ---
Upon my arrival on shift change, service bar cashier was coding patient. TOD was 0658. diplomatic interpreter/translator nurse stayed until post code. Code sheet in patient chart.
--- NOTE | 2022-08-01 13:55 | PC.NURSE ---
Nurse performed post mortem care at 0715.
== END 2022-08-01 13:58 | disposition expired ==
LOC: ER 05:48 → ICU 07:21 → ER 13:58
PROVIDERS: Emergency Medicine; Emergency Provider Family Medicine; PCP Family Medicine
DX: J96.01 Acute respiratory failure with hypoxia (principal); J96.02 Acute respiratory failure with hypercapnia; I95.9 Hypotension, unspecified; E87.5 Hyperkalemia; E16.2 Hypoglycemia, unspecified; K92.2 Gastrointestinal hemorrhage, unspecified; D65 Disseminated intravascular coagulation [defibrination syndrome]
CPT/HCPCS: 31500; 36416; 36556; 36600; 51702; 71045; 80048; 80051; 80053; 82330; 82805; 82962; 83605; 83735; 84145; 84484; 85007; 85025; 85362; 85378; 85384; 85610; 85730; 86850; 86900; 93005; 94002; 96374; 96375; 99291; J3490; J7030; J7060; J7070; J7613